=== PATIENT | male | born 1995 | race Caucasian/White ===

== ENCOUNTER 2018-04-28 00:25 | Emergency (ER) | payer OTHER ==
[~2018-04-28] VITALS: Ht 177.8 cm; Wt 75.0 kg
[2018-04-28 00:47] VITALS: Ht 177.8 cm; Wt 75.0 kg
[2018-04-28] MEDS ORDERED: ROBAXIN500 MG PO (03:30)
[2018-04-28] MEDS ORDERED: HYDROCODONE-APA1 TAB PO (03:30)
[2018-04-28 04:43] VITALS: BP 133/68
== END 2018-04-28 04:43 | disposition home or self-care (01) ==
LOC: D.ER 00:25
DX: S29.012A Strain of muscle and tendon of back wall of thorax, initial encounter (principal); V49.9XXA Car occupant (driver) (passenger) injured in unspecified traffic accident, initial encounter; Y93.89 Activity, other specified; Y92.410 Unspecified street and highway as the place of occurrence of the external cause; S16.1XXA Strain of muscle, fascia and tendon at neck level, initial encounter; S39.012A Strain of muscle, fascia and tendon of lower back, initial encounter